=== PATIENT | female | born 1960 | race African-American/Black ===

== ENCOUNTER 2017-04-08 21:29 | Emergency (ER) | payer MEDICARE, MEDICAID ==
[~2017-04-08] VITALS: Ht 175.3 cm; Wt 127.0 kg
[2017-04-08] MEDS ORDERED: KETOROLAC 60MG/2ML VIAL IM STA (22:31)
[2017-04-08 23:08] LABS: HEMATOCRIT. 31.8 % (36.0-48.0); HEMOGLOBIN. 10.2 g/dL (12.0-16.0); LYMPHOCYTES % 25.1 % (20.0-50.0); MEAN CORPUSCULAR HEMOGLOBIN 24.8 pg (28.0-32.0); MEAN CORPUSCULAR VOLUME 77.2 fL (81.0-99.0); MEAN PLATELET VOLUME 8.1 fl (7.4-10.4); MONOCYTES % 6.6 % (2.0-8.0); NEUTROPHILS % 66.3 % (40.0-76.0); PLATELET 343 x1000/uL (130-400); RED BLOOD CELL COUNT 4.12 mill/uL (4.2-5.4); RED CELL DISTRIBUTION WIDTH 16.5 % (11.6-14.6)
[2017-04-08 23:15] LABS: PROTHROMBIN TIME 10.8 sec
[2017-04-08 23:26] LABS: CARBON DIOXIDE 23 mEq/L (21-32); CHLORIDE 105 mEq/L (98-107); ETHANOL BLOOD 113 mg/dL; TROPONIN I < 0.02 ng/mL (0.00-0.04)
[2017-04-09] MEDS ORDERED: HYDROCODONE/ACETAMINOPHEN 10/325MG TABLET PO ONE (06:45)
[2017-04-09 07:14] VITALS: BP 134/47
== END 2017-04-09 08:07 | disposition home or self-care (01) ==
LOC: ER 22:10
DX: R07.9 Chest pain, unspecified (principal); M79.652 Pain in left thigh; E11.9 Type 2 diabetes mellitus without complications; J45.909 Unspecified asthma, uncomplicated; Z88.2 Allergy status to sulfonamides
CPT/HCPCS: 36415; 71010; 80053; 84484; 85025; 85610; 93005; 96372; 99285; G0482; J1885

== ENCOUNTER 2018-12-18 20:15 | Inpatient (IN) | payer MEDICARE, MEDICAID ==
[~2018-12-18] VITALS: Ht 170.2 cm; Wt 158.8 kg
[2018-12-18 21:54] LABS: BASOPHILS % 0.4 % (0.0-2.0); EOSINOPHILS % 1.3 % (0.0-5.0); HEMOGLOBIN. 10.9 g/dL (12.0-16.0); LYMPHOCYTES % 28.7 % (20.0-50.0); MEAN CORPUSCULAR HEMOGLOBIN 24.8 pg (28.0-32.0); MEAN CORPUSCULAR VOLUME 77.1 fL (81.0-99.0); MEAN PLATELET VOLUME 7.9 fl (7.4-10.4); MONOCYTES % 5.5 % (2.0-8.0); NEUTROPHILS % 64.1 % (40.0-76.0); PLATELET 348 x1000/uL (130-400); RED BLOOD CELL COUNT 4.41 mill/uL (4.2-5.4)
[2018-12-18 21:57] LABS: CHLORIDE 109 mEq/L (98-107)
[2018-12-18 21:59] LABS: PARTIAL THROMBOPLASTIN TIME 27.8 sec (23.4-31.0); PROTHROMBIN TIME 10.5 sec (9.1-11.1)
[2018-12-18 22:25] LABS: D-DIMER 0.4 mg/L FEU (<0.50)
[2018-12-18] MEDS ORDERED: ACETAMINOPHEN 325MG TABLET PO ONE (22:30)
[2018-12-18] MEDS ORDERED: LORAZEPAM 1MG TABLET PO ONE (23:15)
[2018-12-19] MEDS ORDERED: ACETAMINOPHEN 325MG TABLET PO PRN
[2018-12-19] MEDS ORDERED: CLONIDINE 0.1MG TABLET PO PRN
[2018-12-19] MEDS ORDERED: MAGNESIUM/ALUMINUM HYDROXIDE/SIMETHICONE 30ML UDC PO PRN
[2018-12-19] MEDS ORDERED: ONDANSETRON HCL 4MG/2ML INJ IV PRN
[2018-12-19] MEDS ORDERED: DOCUSATE SODIUM 100MG CAPSULE PO PRN
[2018-12-19] MEDS ORDERED: DEXTROSE 50% WATER 50ML SYRINGE IV PRN
[2018-12-19] MEDS ORDERED: GUAIFENESIN 200MG/10ML SUGAR FREE UDC PO PRN
[2018-12-19] MEDS ORDERED: IPRATROPIUM/ALBUTEROL 0.5-3(2.5)MG/3ML NEB INH PRN
[2018-12-19] MEDS ORDERED: ENOXAPARIN 40MG/0.4ML SYR SUBCUT SCH
[2018-12-19] MEDS ORDERED: HYDRALAZINE 20MG/ML VIAL IV PRN
[2018-12-19] MEDS ORDERED: HYDROMORPHONE HCL/PF 2MG/ML CPJ IV PRN
[2018-12-19] MEDS ORDERED: DIPHENHYDRAMINE 50MG/ML VIAL IV PRN
[2018-12-19 05:00] LABS: CHLORIDE 110 mEq/L (98-107)
[2018-12-19 05:07] LABS: LDL CHOLESTEROL 84 mg/dL (5-100)
[2018-12-19 05:09] LABS: CREATINE KINASE 169 IU/L (26-192); CREATINE KINASE MB FRACTION 2.3 ng/mL (0.5-3.6); HDL CHOLESTEROL 68 mg/dL (40-59); T4 FREE 0.94 ng/dL (0.76-1.46)
[2018-12-19] MEDS: HYDROCODONE/ACETAMINOPHEN 10/325MG TABLET PO PRN ×3 (05:24→22:07)
[2018-12-19] MEDS: SODIUM CHLORIDE 0.9% INJ 3ML FLUSH IVF SCH ×3 (06:31→21:00)
[2018-12-19 07:00] LABS: BASOPHILS % 0.7 % (0.0-2.0); EOSINOPHILS % 1.2 % (0.0-5.0); HEMATOCRIT. 34.6 % (36.0-48.0); HEMOGLOBIN. 11.1 g/dL (12.0-16.0); LYMPHOCYTES % 29.9 % (20.0-50.0); MEAN CORPUSCULAR HEMOGLOBIN 24.7 pg (28.0-32.0); MEAN PLATELET VOLUME 7.9 fl (7.4-10.4); MONOCYTES % 5.6 % (2.0-8.0); NEUTROPHILS % 62.6 % (40.0-76.0); PLATELET 353 x1000/uL (130-400); RED CELL DISTRIBUTION WIDTH 19.2 % (11.6-14.6)
[2018-12-19] MEDS: ASPIRIN 81MG EC TABLET PO SCH (08:11)
[2018-12-19] MEDS: ENOXAPARIN 40MG/0.4ML SYR SUBCUT SCH ×2 (08:15→20:26)
[2018-12-19] MEDS: INSULIN LISPRO 100 UNITS/ML SUBCUT SCH ×4 (08:20→20:27)
[2018-12-19] MEDS: BLOOD SUGAR DIAGNOSTIC STRIP TEST SCH ×4 (09:00→20:26)
[2018-12-19] MEDS ORDERED: NA PHOS,M-B/NA PHOS,DI-BA ENEMA 118ML PR PRN (09:00)
[2018-12-19 10:35] VITALS: BP 150/80
[2018-12-19 10:36] VITALS: BP 150/80
[2018-12-19] MEDS ORDERED: AMLO5TAB4 MT (10:55)
[2018-12-19] MEDS ORDERED: N325 SL (10:55)
[2018-12-19] MEDS ORDERED: FLUO10CA25 MT (10:55)
[2018-12-19] MEDS ORDERED: FERR140T2 MT (10:55)
[2018-12-19] MEDS ORDERED: MONT10TA21 MT (10:55)
[2018-12-19] MEDS ORDERED: LOSA100T14 MT (10:55)
[2018-12-19] MEDS ORDERED: GABA-531 MT (10:55)
[2018-12-19] MEDS ORDERED: HYDR-4005 MT (10:55)
[2018-12-19] MEDS ORDERED: OXYB5TAB11 MT (10:55)
[2018-12-19] MEDS ORDERED: CLON0.122 MT (10:55)
[2018-12-19 12:00] VITALS: BP 126/80
[2018-12-19] MEDS ORDERED: IOHEXOL-300 100 ML BOTTLE ONE (14:06)
[2018-12-19 15:47] LABS: BASOPHILS % 0.4 % (0.0-2.0); EOSINOPHILS % 0.9 % (0.0-5.0); HEMATOCRIT. 31.8 % (36.0-48.0); HEMOGLOBIN. 10.3 g/dL (12.0-16.0); LYMPHOCYTES % 30.1 % (20.0-50.0); MEAN PLATELET VOLUME 8.1 fl (7.4-10.4); MONOCYTES % 5.5 % (2.0-8.0); NEUTROPHILS % 63.1 % (40.0-76.0); PLATELET 321 x1000/uL (130-400); RED BLOOD CELL COUNT 4.12 mill/uL (4.2-5.4); RED CELL DISTRIBUTION WIDTH 18.7 % (11.6-14.6)
[2018-12-19 15:52] LABS: CREATINE KINASE 105 IU/L (26-192)
[2018-12-19 15:55] LABS: T4 FREE 1.03 ng/dL (0.76-1.46)
[2018-12-19 16:00] VITALS: BP 132/81
[2018-12-19] MEDS: GABAPENTIN 300MG CAPSULE PO SCH (16:36)
[2018-12-19] MEDS: FERROUS SULFATE 325MG TABLET PO SCH (16:37)
[2018-12-19] MEDS: AMLODIPINE 5MG TABLET PO SCH (16:37)
[2018-12-19] MEDS ORDERED: OXYB5TAB11 PO (17:18)
[2018-12-19 20:00] VITALS: BP 134/65
[2018-12-19] MEDS: OXYBUTYNIN CHLORIDE 5MG TABLET PO SCH ×2 (20:26→21:00)
[2018-12-19] MEDS: LORAZEPAM 2MG/ML CPJ IV PRN (20:56)
[2018-12-20 04:00] VITALS: BP 142/64
[2018-12-20] MEDS: HYDROCODONE/ACETAMINOPHEN 10/325MG TABLET PO PRN ×2 (04:08→18:06)
[2018-12-20] MEDS: SODIUM CHLORIDE 0.9% INJ 3ML FLUSH IVF SCH ×3 (05:27→21:02)
[2018-12-20] MEDS: OXYBUTYNIN CHLORIDE 5MG TABLET PO SCH ×3 (05:27→21:00)
[2018-12-20] MEDS: BLOOD SUGAR DIAGNOSTIC STRIP TEST SCH ×4 (06:20→20:54)
[2018-12-20] MEDS ORDERED: REGADENOSON 0.4 MG/5 ML IV ONE ×2 (07:45→10:26)
[2018-12-20] MEDS: INSULIN LISPRO 100 UNITS/ML SUBCUT SCH ×4 (07:50→20:54)
[2018-12-20 08:00] VITALS: BP 126/58
[2018-12-20] MEDS: GABAPENTIN 300MG CAPSULE PO SCH ×3 (09:02→18:05)
[2018-12-20] MEDS: FLUOXETINE HCL 10 MG CAPSULE PO SCH (09:02)
[2018-12-20] MEDS: AMLODIPINE 5MG TABLET PO SCH (09:02)
[2018-12-20] MEDS: ASPIRIN 81MG EC TABLET PO SCH (09:02)
[2018-12-20] MEDS: ENOXAPARIN 40MG/0.4ML SYR SUBCUT SCH ×2 (09:03→20:54)
[2018-12-20] MEDS: FERROUS SULFATE 325MG TABLET PO SCH (09:22)
[2018-12-20 09:31] VITALS: BP 126/58
[2018-12-20 12:34] VITALS: BP 151/71
[2018-12-20 20:00] VITALS: BP 151/75
[2018-12-20] MEDS: LORAZEPAM 2MG/ML CPJ IV PRN (23:44)
[2018-12-21] VITALS (7 sets, daily range): BP systolic 118–136; BP diastolic 50–85
[2018-12-21] MEDS: OXYBUTYNIN CHLORIDE 5MG TABLET PO SCH ×2 (05:38→14:36)
[2018-12-21] MEDS: SODIUM CHLORIDE 0.9% INJ 3ML FLUSH IVF SCH ×2 (05:57→14:29)
[2018-12-21] MEDS: LORAZEPAM 2MG/ML CPJ IV PRN ×2 (06:11→16:07)
[2018-12-21] MEDS: BLOOD SUGAR DIAGNOSTIC STRIP TEST SCH ×2 (06:20→11:41)
[2018-12-21] MEDS: INSULIN LISPRO 100 UNITS/ML SUBCUT SCH ×2 (07:50→12:27)
[2018-12-21] MEDS: FERROUS SULFATE 325MG TABLET PO SCH (08:44)
[2018-12-21] MEDS: ASPIRIN 81MG EC TABLET PO SCH (08:44)
[2018-12-21] MEDS: FLUOXETINE HCL 10 MG CAPSULE PO SCH (08:44)
[2018-12-21] MEDS: GABAPENTIN 300MG CAPSULE PO SCH ×2 (08:45→12:38)
[2018-12-21] MEDS: AMLODIPINE 5MG TABLET PO SCH (08:45)
[2018-12-21] MEDS: ENOXAPARIN 40MG/0.4ML SYR SUBCUT SCH (08:45)
[2018-12-21] MEDS: HYDROCODONE/ACETAMINOPHEN 10/325MG TABLET PO PRN (12:39)
== END 2018-12-21 17:20 | disposition home or self-care (01) | DRG 206 ==
LOC: ER 20:15 → 6WST 23:11 → ENRESERV 12-19 08:44
PROVIDERS: ADMIT Internal Medicine; ATTEND Internal Medicine
DX: M94.0 Chondrocostal junction syndrome [Tietze] (principal); Z68.43 Body mass index [BMI] 50.0-59.9, adult; R07.9 Chest pain, unspecified; E11.9 Type 2 diabetes mellitus without complications; I25.10 Atherosclerotic heart disease of native coronary artery without angina pectoris; I11.9 Hypertensive heart disease without heart failure; E66.01 Morbid (severe) obesity due to excess calories; F17.210 Nicotine dependence, cigarettes, uncomplicated; G62.9 Polyneuropathy, unspecified; M19.90 Unspecified osteoarthritis, unspecified site; J45.909 Unspecified asthma, uncomplicated; F32.9 Major depressive disorder, single episode, unspecified; M06.9 Rheumatoid arthritis, unspecified; Z88.2 Allergy status to sulfonamides
CPT/HCPCS: 36415; 71045; 78452; 80061; 82550; 82553; 82962; 83036; 83880; 84439; 84443; 84484; 85379; 93005; 93017; 93306; 93970; 97162; 97166; 99285; A9500; J1650; J2060; J2785; Q9967

== ENCOUNTER 2018-12-27 23:55 | Emergency (ER) | payer MEDICARE, MEDICAID ==
[~2018-12-27] VITALS: Ht 170.2 cm; Wt 131.0 kg
[~2018-12-27 23:55] MED LIST: AMLO5TAB4 MT; CLON0.122 MT; FERR140T2 MT; FLUO10CA25 MT; GABA-531 MT; HYDR-4005 MT; LOSA100T14 MT; MONT10TA21 MT; N325 SL; OXYB5TAB11 PO
[2018-12-28 02:50] LABS: EOSINOPHILS % 1.4 % (0.0-5.0); HEMATOCRIT. 35.5 % (36.0-48.0); HEMOGLOBIN. 11.4 g/dL (12.0-16.0); LYMPHOCYTES % 27.7 % (20.0-50.0); MEAN CORPUSCULAR HEMOGLOBIN 25.3 pg (28.0-32.0); MEAN CORPUSCULAR VOLUME 78.7 fL (81.0-99.0); MEAN PLATELET VOLUME 8.1 fl (7.4-10.4); MONOCYTES % 7.2 % (2.0-8.0); NEUTROPHILS % 62.7 % (40.0-76.0); PLATELET 304 x1000/uL (130-400); RED BLOOD CELL COUNT 4.51 mill/uL (4.2-5.4); RED CELL DISTRIBUTION WIDTH 19.6 % (11.6-14.6)
[2018-12-28 02:55] LABS: CHLORIDE 106 mEq/L (98-107)
[2018-12-28 02:59] LABS: ETHANOL BLOOD < 10 mg/dL
[2018-12-28 03:45] LABS: CLARITY URINE CLOUDY (CLEAR); COLOR URINE YELLOW (YELLOW); KETONES URINE NEGATIVE (NEGATIVE); LEUKOCYTE ESTERASE URINE NEGATIVE (NEGATIVE); NITRITE URINE NEGATIVE (NEGATIVE); OCCULT BLOOD URINE NEGATIVE (NEGATIVE); PH URINE 5.5 (4.5-8.0); PROTEIN URINE NEGATIVE (NEGATIVE); SPECIFIC GRAVITY URINE 1.025 (1.005-1.030)
[2018-12-28 03:56] LABS: *AMPHETAMINES SCREEN URINE NEGATIVE (NEGATIVE); *BARBITURATES SCREEN URINE NEGATIVE (NEGATIVE); *BENZODIAZEPINES SCREEN URINE NEGATIVE (NEGATIVE); *COCAINE SCREEN URINE NEGATIVE (NEGATIVE); METHADONE URINE SCREEN NEGATIVE (NEGATIVE); OPIATES URINE SCREEN NEGATIVE (NEGATIVE)
[2018-12-28 03:57] LABS: CANNABINOID URINE SCREEN NEGATIVE (NEGATIVE); PHENCYCLIDINE URINE SCREEN NEGATIVE (NEGATIVE)
[2018-12-28] MEDS ORDERED: IBUPROFEN 600MG TABLET PO STA (06:18)
[2018-12-28] MEDS ORDERED: OXYBUTYNIN CHLORIDE 5MG TABLET PO ONE (06:45)
[2018-12-28 11:00] VITALS: BP 134/69
== END 2018-12-28 11:30 | disposition home or self-care (01) ==
LOC: ER 23:55
DX: R60.9 Edema, unspecified (principal); M79.10 Myalgia, unspecified site; J45.909 Unspecified asthma, uncomplicated; E11.9 Type 2 diabetes mellitus without complications; I10 Essential (primary) hypertension; I51.7 Cardiomegaly; Z79.899 Other long term (current) drug therapy; Z88.2 Allergy status to sulfonamides
CPT/HCPCS: 36415; 80305; 80320; 93970; 99284; G0480